=== PATIENT | female | born 1960 | race Caucasian/White ===

== ENCOUNTER 2017-12-23 13:56 | Emergency (ER) | payer MEDICARE, MEDICAID ==
--- NOTE | 2017-12-23 15:34 | CT ---
CT OF THE PELVIS WITHOUT CONTRAST: Date: 12/23/17 INDICATION: History of right hip pain and chronic low back pain due to lifting. FINDINGS: There are scattered vascular calcifications noted involving the pelvic vasculature. Unopacified small bowel appears within normal limits. There is a mild amount of retained stool within the colon. The u terus is unremarkable by CT. No free fluid is evident. The bladder, rectum, and perirectal soft tissu es are unremarkable. No definite acute osseous abnormality is evident. A small, well circumscribed sclerotic lesion within the left sacrum, as well as the left acetabulum, have a benign appearance. There is mild diffuse ost eopenia and mild degenerative changes seen involving the hips and the lower lumbar spine. IMPRESSION: 1. No acute abnormality demonstrated. 2. Mild amount of retained stool within the colon. 3. Small sclerotic lesion within the left acetabulum suspicious for bone island. There is a well cir cumscribed partially lucent lesion within the left that has the appearance of a lesion of low biologi c activity. POS: [facility]
[2017-12-23] MEDS ORDERED: Ketorolac Tromethamine 30 MG/ML VIAL ONE (17:38)
[2017-12-23] MEDS ORDERED: HYDROcodone/Acetaminophen 5/325 mg Tablet ONE (17:38)
[2017-12-23] MEDS ORDERED: Dexamethasone 4 MG TAB ONE (17:38)
[2017-12-23] MEDS ORDERED: Diazepam 5 MG TAB ONE (17:45)
== END 2017-12-23 18:04 | disposition home or self-care (01) ==
LOC: MADERS 13:56
DX: M54.5 Low back pain (principal); G43.909 Migraine, unspecified, not intractable, without status migrainosus; F41.9 Anxiety disorder, unspecified; F32.9 Major depressive disorder, single episode, unspecified; F17.210 Nicotine dependence, cigarettes, uncomplicated
CPT/HCPCS: 72192; 96372; J1885; J8540

== ENCOUNTER 2018-05-13 09:51 | Emergency (ER) | payer MEDICARE, MEDICAID ==
[~2018-05-13 09:51] MED LIST: Sodium Chloride 0.9% 1,000 ML BAG ONE
[2018-05-13] MEDS ORDERED: Iopamidol 370 76% 100 ML VIAL ONE (10:32)
[2018-05-13 11:08] LABS: #Basophils 0.1 thou/uL (0.0-0.2); #Eosinphils 0.2 thou/uL (0.0-0.7); #Lymphocytes 2.1 thou/uL (1.20-3.40); #Monocytes 0.3 thou/uL (0.11-0.59); #Neutrophils 4.4 thou/uL (1.40-6.50); %Basophils 0.9 % (0.0-1.0); %Monocytes 4.5 % (0.0-10.0); %Neutrophils 61.6 % (42.0-75.0); Hemoglobin 12.4 g/dL (12.0-16.0); Mean Corpuscular HGB CONC 34.7 g/dL (32.0-36.0); Mean Corpuscular Hemoglobin 30.8 pg (27.0-31.0); Mean Corpuscular Volume 88.8 fL (78.0-98.0); Mean Platelet Volume 6.1 fL (7.4-10.4); Platelet Count 308 thou/uL (130-400); RBC Distribution Width 12.6 % (11.5-14.5); Red Blood Cell (RBC) Count 4.03 mill/uL (4.20-5.40); White Blood Cell (WBC) Count 7.1 thou/uL (4.8-10.8)
[2018-05-13] MEDS ORDERED: predniSONE 20 MG TAB ONE (11:20)
[2018-05-13] MEDS ORDERED: Acetaminophen 500 MG TAB ONE (11:20)
[2018-05-13 11:26] LABS: ALT (SGPT) 25 U/L (8-55); AST (SGOT) 29 U/L (5-34); Albumin 3.6 g/dL (3.5-5.0); Alkaline Phosphatase 58 U/L (40-150); Anion Gap 17 mmol/L (10-20); BUN (Urea Nitrogen) 9 mg/dL (9.8-20.1); Bilirubin, Total 0.3 mg/dL (0.2-1.2); Calc. Creatinine Clearance 0 mL/min (70-130); Calcium 8.4 mg/dL (7.8-10.44); Carbon Dioxide 19 mmol/L (22-29); Chloride 110 mmol/L (98-107); Estimated GFR-MDRD 87; Globulin 2.9 g/dL (2.4-3.5); Glucose 86 mg/dL (70-105); Lipase 16 U/L (8-78); Potassium 3.7 mmol/L (3.5-5.1); Protein, Total 6.5 g/dL (6.0-8.3); Sodium 142 mmol/L (136-145)
[2018-05-13 11:28] LABS: CKMB 2.3 ng/mL (0-6.6); Troponin I Less than 0.010 ng/mL (< 0.028)
--- NOTE | 2018-05-13 12:37 | CT ---
CT OF THE ABDOMEN AND PELVIS WITH IV CONTRAST: Date: 05/13/18 INDICATION: Epigastric abdominal pain for 24 hours with history of gallbladder surgery, gastric disease, and panc reatitis. CONTRAST: 100 mL Isovue. COMPARISON: CT of pelvis dated 12/23/17. FINDINGS: There is mild bibasilar atelectasis. There is a 5.0 mm pulmonary nodule within the right middle lobe. Gallbladder surgically absent. Pancreas and adrenal glands are normal appearing. The spleen and kidneys appear within normal limits. Mild amount of retained stool within the colon. Appendix is not definitely seen. Slight heterogeneity of the uterus may reflect underlying fibroid disease. The bladder, rectum, and perirectal soft tissues unremarkable. No acute osseous abnormality is evident. There is postprocedural changes of a L1 vertebroplasty. Mild wedge compression abnormality of T11 is stable to a comparison CT dated 01/15/14. IMPRESSION: 1. Moderate amount of retained stool within the colon. 2. 5.0 mm right middle lobe pulmonary nodule. 3. Fibroid uterus. 4. Stable T11 and L1 compression abnormality. 5. Stable vertebroplasty change at L1. RECOMMENDATION: Recommend a follow-up CT of the thorax to evaluate for additional pulmonary nodules so appropriate ri sk stratification can be recommended. POS: [facility]
[2018-05-13] MEDS ORDERED: Dicyclomine 10 MG CAP ONE (13:22)
== END 2018-05-13 13:30 | disposition home or self-care (01) ==
LOC: MADERS 09:51
DX: R10.9 Unspecified abdominal pain (principal); M19.90 Unspecified osteoarthritis, unspecified site; E03.9 Hypothyroidism, unspecified; F32.9 Major depressive disorder, single episode, unspecified; F41.9 Anxiety disorder, unspecified; G43.909 Migraine, unspecified, not intractable, without status migrainosus; F17.210 Nicotine dependence, cigarettes, uncomplicated; Z79.899 Other long term (current) drug therapy
CPT/HCPCS: 36415; 74177; 80053; 82553; 83690; 84484; 85025; 93005; 96360; 99406; J7050; J7506

== ENCOUNTER 2018-07-28 09:46 | Emergency (ER) | payer MEDICARE, MEDICAID ==
--- NOTE | 2018-07-28 11:51 | RAD ---
CHEST PA AND LATERAL: History: 58-year-old female with history of chest injury. FINDINGS: Heart size is normal. The lungs are clear. No pneumonia, edema, pleural effusion, or other acute proc ess. IMPRESSION: No acute intrathoracic disease. POS: [facility]
== END 2018-07-28 10:44 | disposition home or self-care (01) ==
LOC: MADERS 09:46
DX: S29.011A Strain of muscle and tendon of front wall of thorax, initial encounter (principal); G43.909 Migraine, unspecified, not intractable, without status migrainosus; F17.210 Nicotine dependence, cigarettes, uncomplicated; F32.9 Major depressive disorder, single episode, unspecified; Z79.899 Other long term (current) drug therapy; X50.9XXA Other and unspecified overexertion or strenuous movements or postures, initial encounter
CPT/HCPCS: 71046; 99406

== ENCOUNTER 2019-06-19 11:06 | Emergency (ER) | payer MEDICARE, MEDICAID ==
[2019-06-19] MEDS ORDERED: Ketorolac Tromethamine 30 MG/ML VIAL ONE (11:24)
== END 2019-06-19 11:50 | disposition home or self-care (01) ==
LOC: MADERS 11:06
DX: S39.012A Strain of muscle, fascia and tendon of lower back, initial encounter (principal); E03.9 Hypothyroidism, unspecified; G43.909 Migraine, unspecified, not intractable, without status migrainosus; F41.9 Anxiety disorder, unspecified; F32.9 Major depressive disorder, single episode, unspecified; F17.210 Nicotine dependence, cigarettes, uncomplicated; Z79.899 Other long term (current) drug therapy; X50.1XXA Overexertion from prolonged static or awkward postures, initial encounter
CPT/HCPCS: 96372; 99283; J1885

== ENCOUNTER 2020-09-06 15:52 | Emergency (ER) | payer MEDICARE, MEDICAID ==
--- NOTE | 2020-09-06 16:44 | RAD ---
Frontal radiograph chest Upright and supine frontal imaging of the abdomen and pelvis: 09/06/2020 COMPARISON: None HISTORY: Intermittent abdominal pain with constipation FINDINGS: Frontal radiograph of the chest demonstrates no pneumothorax or pleural fluid and no focal consolidation or alveolar edema. Heart and mediastinal contours appear grossly unremarkable. Clips in the right upper quadrant suggest prior cholecystectomy. There is evidence of prior kyphoplasty at L2. No free intraperitoneal air. There is significant stool overlying the colon, particularly the ascendi ng colon and within the region of the sigmoid colon/rectum. There are a few gas-filled mildly prominent loops of small bowel within the mid left abdomen. No dilated small bowel or air-fluid level s are seen. IMPRESSION: Gas seen within mildly prominent but nondilated loops of small bowel within the mid left abdomen. No radiographic evidence of acute cardiopulmonary disease or free intraperitoneal air. If symptoms persist, follow-up CT may be beneficial.
[2020-09-06 16:48] LABS: Bilirubin Negative (Negative); Blood, Urine Small (Negative); Glucose, Urine (Dipstick) Negative (Negative); Ketone, Urine Negative (Negative); Leukocyte Negative (Negative); Nitrite Negative (Negative); Protein, Urine (Dipstick) Negative (Neg-Trace); Specific Gravity, Urine 1.015 (1.005-1.030); Urobilinogen 0.2 mg/dL (Less than 2); pH, Urine 6.5 (5.0-9.0)
[2020-09-06] MEDS ORDERED: Ketorolac Tromethamine 30 MG/ML VIAL ONE (16:48)
[2020-09-06 16:50] LABS: #Basophils 0.1 thou/uL (0.0-0.2); #Eosinphils 0.2 thou/uL (0.0-0.7); #Lymphocytes 2.3 thou/uL (1.20-3.40); #Monocytes 0.4 thou/uL (0.11-0.59); #Neutrophils 4.7 thou/uL (1.40-6.50); %Basophils 1.2 % (0.0-1.0); %Eosinophils 2.2 % (0.0-10.0); %Lymphocytes 30.1 % (21.0-51.0); %Monocytes 5.2 % (0.0-10.0); %Neutrophils 61.3 % (42.0-75.0); Hemoglobin 11.3 g/dL (12.0-16.0); Mean Corpuscular HGB CONC 31.9 g/dL (32.0-36.0); Mean Corpuscular Hemoglobin 28.4 pg (27.0-31.0); Mean Platelet Volume 6.2 fL (7.4-10.4); Platelet Count 367 thou/uL (130-400); RBC Distribution Width 14.2 % (11.5-14.5); Red Blood Cell (RBC) Count 3.99 mill/uL (4.20-5.40); White Blood Cell (WBC) Count 7.7 thou/uL (4.8-10.8)
[2020-09-06 16:57] LABS: Bacteria/HPF 1+ HPF (None Seen); Clarity Hazy (Clear); RBC/HPF 0-3 HPF (0-3); Squamous Epithelial 0-3 HPF (0-3); WBC/HPF 0-3 HPF (0-3)
[2020-09-06 17:06] LABS: ALT (SGPT) 19 U/L (8-55); AST (SGOT) 18 U/L (5-34); Albumin 3.9 g/dL (3.5-5.0); Alkaline Phosphatase 47 U/L (40-110); Anion Gap 16 mmol/L (10-20); BUN (Urea Nitrogen) 15 mg/dL (9.8-20.1); Bilirubin, Total 0.2 mg/dL (0.2-1.2); Calc. Creatinine Clearance 0 mL/min (70-130); Calcium 8.9 mg/dL (7.8-10.44); Carbon Dioxide 22 mmol/L (22-29); Chloride 106 mmol/L (98-107); Estimated GFR-MDRD 77; Globulin 3.5 g/dL (2.4-3.5); Glucose 102 mg/dL (70-105); Lipase 13 U/L (8-78); Potassium 3.7 mmol/L (3.5-5.1); Protein, Total 7.4 g/dL (6.0-8.3); Sodium 140 mmol/L (136-145)
== END 2020-09-06 17:42 | disposition home or self-care (01) ==
LOC: MADERS 15:52
DX: K59.00 Constipation, unspecified (principal); G43.909 Migraine, unspecified, not intractable, without status migrainosus; M81.0 Age-related osteoporosis without current pathological fracture; E03.9 Hypothyroidism, unspecified; F41.9 Anxiety disorder, unspecified; F32.9 Major depressive disorder, single episode, unspecified; F17.210 Nicotine dependence, cigarettes, uncomplicated; Z79.899 Other long term (current) drug therapy
CPT/HCPCS: 36415; 74022; 80053; 81003; 81015; 83690; 85025; 96374; J1885